=== PATIENT | male | born 1965 | race African-American/Black ===

== ENCOUNTER 2018-05-13 04:49 | Inpatient (IN) ==
[2018-05-13] MEDS ORDERED: Ketorolac 30 MG/ML VIAL IM ONE (04:57)
[2018-05-13] MEDS ORDERED: 0.9 % Sodium Chloride 1,000 ML IVC ONE (04:58)
[2018-05-13] MEDS ORDERED: Ketorolac 15 MG/ML VIAL IVP ONE (04:58)
--- NOTE | 2018-05-13 04:59 | Emergency Department Note ---
Disposition Clinical Impression: Polyarthralgia, Heroin use, Type 1 diabetes mellitus on insulin therapy, Hyperglycemia Cellulitis Qualifiers: Site of cellulitis: extremity Site of cellulitis of extremity: upper extremity Laterality: left Qualified Code(s): L03.114 - Cellulitis of left upper limb Sepsis Qualifiers: Sepsis type: sepsis due to unspecified organism Qualified Code(s): A41.9 - Sepsis, unspecified organism Disposition: Admitted As Inpatient Condition: Fair [facility]Primary Care Provider[facility] - Forms: ED Satisfaction Letter Time of Disposition: 05:38 Extremity Problem HPI - General Chief complaint: ED Extremity Problem,Nontraumatic Stated complaint: arm and leg pain Time Seen by Provider: 05/13/18 04:50 Source: patient, EMS Mode of arrival: ambulatory Limitations: no limitations Nursing Notes Reviewed: Yes Vital Signs Reviewed: Yes - History of Present Illness HPI Narrative: 52-year-old male history of heroin IV drug use, presents complaining of bilateral upper and lower extremity myalgias worsening his right arm forearm and left forearm, as well as his right knee. Patient states he is warmth and tenderness of his knee. He states that today he was able to walk but his pain was so severe. The patient denies headache or chest pain, denies abdominal pain or shortness of breath. Patient Pt Subjective Complaint: extremity pain Injury Location: left, right, upper extremity, lower extremity, elbow Pain Scale: 10 Quality: aching Improves with: nothing Worsens with: nothing Associated symptoms: Reports: fever, myalgias. Denies: chest pain, shortness of breath, abdominal pain, bowel/bladder symptoms, arthralgias, change in appearance, swelling - Related Data Home Medications Medication Instructions Recorded Confirmed Aspirin [Adult Low Dose Aspirin EC] 81 mg PO DAILY 02/01/16 02/01/16 Baclofen [Lioresal] 10 mg PO TID 02/01/16 02/01/16 Buspirone HCl [Buspar] 10 mg PO TID 02/01/16 02/01/16 Colestipol HCl [Colestid] 2 gm PO DAILY 02/01/16 02/01/16 Gabapentin [Neurontin] 800 mg PO TID 02/01/16 02/01/16 Insulin ASPART [NovoLOG] 2 - 10 unit SQ ACHS 02/01/16 02/01/16 Insulin Glargine,Hum.rec.anlog 20 unit SQ BID 02/01/16 02/01/16 [Lantus Solostar] Losartan [Cozaar] 50 mg PO DAILY 02/01/16 02/01/16 Omeprazole [PriLOSEC] 20 mg PO DAILY 02/01/16 02/01/16 Venlafaxine HCl [Effexor Xr] 75 mg PO DAILY 02/01/16 02/01/16 hydrALAZINE [HydrALAZINE] 25 mg PO TID 02/01/16 02/01/16 Previous Rx's Medication Instructions Recorded Ibuprofen [Motrin] 800 mg PO Q8HR PRN #21 tablet 02/02/16 cloNIDine HCl [Clonidine HCl] 0.3 mg PO TID PRN #21 tab 02/02/16 Allergies Allergy/AdvReac Type Severity Reaction Status Date / Time No Known Allergies Allergy Verified 07/30/15 10:00 All systems ED: reviewed and negative except as stated. Review of Systems: As Per HPI Constitutional: Reports: fever, chills Eyes: Denies: eye pain, eye discharge ENT ED: Denies: ear pain Cardiovascular: Denies: chest pain Respiratory: Denies: cough, dyspnea Gastrointestinal: Denies: abdominal pain, nausea, hematemesis Genitourinary: Denies: urgency, dysuria Musculoskeletal: Reports: as per HPI, joint swelling, arthralgia, myalgia. Denies: back pain Integumentary: Reports: as per HPI, rash Neurological: Denies: headache Psychiatric: Denies: anxiety Endocrine: Denies: fatigue Hematological/Lymphatic: Denies: easy bleeding Past Medical History - Past Medical History Attestation: Yes The following information was validated with the patient. Source: patient Medical history: Reports: diabetes, GERD, hyperlipidemia, hypertension, other Surgical history: Reports: no surgical history, orthopedic, other Psychiatric history: Reports: no psych history - Social History Smoking Status: Current every day smoker Smokeless Tobacco Status: No Alcohol use: Reports: occasionally Drug use: Reports: cocaine, IV Drug Use, other Physical Exam - General Limitations: no limitations General appearance: alert, in no apparent distress - Head Head exam: atraumatic - Eye Eye exam: Present: normal appearance, PERRL - ENT ENT exam: normal exam, normal oropharynx - Neck Neck exam: Present: normal inspection, full ROM - Chest Chest inspection: Present: normal inspection - Respiratory Respiratory exam: Present: normal lung sounds bilaterally. Absent: respiratory distress - Cardiovascular Cardiovascular exam: Present: regular rate, normal rhythm - Abdominal Exam Abdominal exam: Present: soft, Non-Tender. Absent: distention, guarding - Expanded Upper Extremity Exam Arm exam: Present: normal inspection, full ROM Elbow exam: Present: tenderness, swelling, erythema. Absent: crepitus, dislocation, effusion, pain w/ pronation/supination - Expanded Lower Extremity Exam 1 - Erythematous, tenderness palpation anteriorly, pain with passive range of motion Course Course Narrative: 52-year-old male with erythema and warmth to the right knee bilateral elbows, his left elbow is more indurated, concern for possible septic joints and also for bacteremia given that he uses IV drugs visit temperature 100.9, meets for Sirs criteria having blood cultures lactate fluids, will reassess. - Reevaluation(s) Reevaluation #1: Patient started empirically on vancomycin and Zosyn, right knee was tapped and sent for synovial fluid analysis, blood cultures were sent urinalysis, and UDS at the request the hospitalist, also GC chlamydia, Dr. Arellano excepting for admission. Time: 06:20 Vital Signs Temperature 100.9 F H 05/13/18 04:52 Pulse Rate 90 05/13/18 04:52 Respiratory Rate 16 05/13/18 04:52 Blood Pressure 152/87 05/13/18 04:52 O2 Sat by Pulse Oximetry 96 05/13/18 04:52 Temperature 100.9 F H 05/13/18 04:52 Pulse Rate 90 05/13/18 04:52 Respiratory Rate 16 05/13/18 04:52 Blood Pressure 152/87 05/13/18 04:52 O2 Sat by Pulse Oximetry 96 05/13/18 04:52 Oxygen Delivery Oxygen Delivery Room Air Procedures - Joint Aspiration/Injection Joint Aspiration/Injection 1 Consent Obtained: verbal consent Time Out Performed: Yes Side of body: right Joint Aspirated: knee Ultrasound Guidance: No Skin Prep: Chlorhexidine Local Anesthetic: lidocaine 1%, with epi Amount of anesthesia used (mL): 5 Fluid Obtained: clear Total Fluid Obtained (mls): 15 Medication Injected, if any: Lidocaine Amount of Medication Injected (mLs): 2 Patient Tolerated Procedure: well, no complications Complications: none Extremity Problem, Nontraumati - Differential Diagnosis Likely: cellulitis, superficial thrombophlebitis, lower extremity edema, septic joint - Medical Records Medical records reviewed: Yes I reviewed the patient's medical records. - Lab Data Lab results reviewed: Yes I reviewed the patient's lab results. Result diagrams: 05/13/18 05:11 05/13/18 05:11 Lab Results 05/13/18 05/13/18 05/13/18 Range/Units 04:54 04:55 05:11 WBC 17.8 H (4.3-11.1) K/mcL RBC 4.88 (4.19-5.50) M/mcL Hgb 13.0 (12.9-16.9) g/dL Hct 38.5 (37.5-50.1) % MCV 78.9 L (83.0-100.0) fL MCH 26.6 L (28.0-33.3) pg MCHC 33.8 (31.6-35.5) g/dL RDW 12.0 (11.5-14.5) % Plt Count 320 (140-400) K/mcL MPV 10.1 (9.4-12.4) fL Immature Gran % 0.5 (0-4) % Seg Neutrophils % 90.3 % Lymphocytes % 4.1 % Monocytes % 4.9 % Eosinophils % 0.0 % Basophils % 0.2 % Neutrophils # 16.1 H (1.6-8.9) K/mcL Lymphocytes # 0.7 (0.6-4.6) K/mcL Monocytes # 0.9 (0.0-1.3) K/mcL Eosinophils # 0.0 (0.0-0.6) K/mcL Basophils # 0.0 (0.0-0.2) K/mcL ESR (0-10) mm/hr Sodium (136-145) mEq/L Potassium (3.5-5.1) mEq/L Chloride (98-107) mEq/L Carbon Dioxide (23-29) mEq/L BUN (6-20) mg/dL Creatinine (0.70-1.30) mg/dL Est GFR ( Amer) (> 60) Est GFR (Non-Af Amer) (> 60) BUN/Creatinine Ratio (6-26) Glucose (70-105) mg/dL POC Glucose 408 H* 304 H (70-99) mg/dL Calculated Osmolality (280-300) Lactic Acid (0.5-2.2) mmol/L Calcium (8.6-10.3) mg/dL C-Reactive Protein (Less than 10) mg/L 05/13/18 05/13/18 05/13/18 Range/Units 05:11 05:11 05:11 WBC (4.3-11.1) K/mcL RBC (4.19-5.50) M/mcL Hgb (12.9-16.9) g/dL Hct (37.5-50.1) % MCV (83.0-100.0) fL MCH (28.0-33.3) pg MCHC (31.6-35.5) g/dL RDW (11.5-14.5) % Plt Count (140-400) K/mcL MPV (9.4-12.4) fL Immature Gran % (0-4) % Seg Neutrophils % % Lymphocytes % % Monocytes % % Eosinophils % % Basophils % % Neutrophils # (1.6-8.9) K/mcL Lymphocytes # (0.6-4.6) K/mcL Monocytes # (0.0-1.3) K/mcL Eosinophils # (0.0-0.6) K/mcL Basophils # (0.0-0.2) K/mcL ESR 107 H (0-10) mm/hr Sodium 127 L (136-145) mEq/L Potassium 4.5 (3.5-5.1) mEq/L Chloride 96 L (98-107) mEq/L Carbon Dioxide 22 L (23-29) mEq/L BUN 19 (6-20) mg/dL Creatinine 2.36 H (0.70-1.30) mg/dL Est GFR ( Amer) 35 L (> 60) Est GFR (Non-Af Amer) 29 L (> 60) BUN/Creatinine Ratio 8 (6-26) Glucose 355 H (70-105) mg/dL POC Glucose (70-99) mg/dL Calculated Osmolality 281 (280-300) Lactic Acid 1.2 (0.5-2.2) mmol/L Calcium 8.2 L (8.6-10.3) mg/dL C-Reactive Protein 53 H (Less than 10) mg/L - Radiology Data Radiology results reviewed: Yes I reviewed the patient's radiology results. Elbow X-Ray 05/13/18 04:57 IMPRESSION: 1. Diffuse soft tissue swelling with a small foreign body adjacent to the base of the thumb. 2. No fracture or malalignment. D/ / Mariusz Austin MD / Mariusz Austin MD Interpreting Provider: Mariusz Austin MD Forearm X-Ray 05/13/18 04:57 IMPRESSION: 1. Diffuse soft tissue swelling with a small foreign body adjacent to the base of the thumb. 2. No fracture or malalignment. D/ / Mariusz Austin MD / Mariusz Austin MD Interpreting Provider: Mariusz Austin MD Knee X-Ray 05/13/18 04:57 IMPRESSION: Soft tissue swelling and joint effusion with no acute osseous abnormality. D/ / Mariusz Austin MD / Mariusz Austin MD Interpreting Provider: Mariusz Austin MD Chest X-Ray 05/13/18 05:04 IMPRESSION: Minimal right basilar atelectasis or, less likely, pneumonia. D/ / Mariusz Austin MD / Mariusz Austin MD Interpreting Provider: Mariusz Austin MD - EKG Data EKG attestation: Yes I reviewed and interpreted this EKG. EKG shows normal: sinus rhythm Rate: normal (87 bpm [place] 152 QRS 105 QTc 396) [place]/QRS: normal
[2018-05-13 05:32] LABS: Basophils % 0.2 %; Hematocrit 38.5 % (37.5-50.1); Immature Granulocytes % 0.5 % (0-4); Lymphocytes # 0.7 K/mcL (0.6-4.6); Lymphocytes % 4.1 %; Mean Corpuscular HGB Conc 33.8 g/dL (31.6-35.5); Mean Corpuscular Hemoglobin 26.6 pg (28.0-33.3); Mean Corpuscular Volume 78.9 fL (83.0-100.0); Mean Platelet Volume 10.1 fL (9.4-12.4); Monocytes # 0.9 K/mcL (0.0-1.3); Monocytes % 4.9 %; Neutrophils # 16.1 K/mcL (1.6-8.9); Platelet Count 320 K/mcL (140-400); Red Blood Count 4.88 M/mcL (4.19-5.50); Segmented Neutrophils % 90.3 %
[2018-05-13] MEDS ORDERED: Vancomycin 1,000 MG in D5% in Water 250 ML IVPB ONE (05:35)
[2018-05-13] MEDS ORDERED: Piperacillin/Tazobactam 3.375 GM in 0.9 % Sodium Chloride Mini Bag 100 ML IVPB ONE (05:35)
--- NOTE | 2018-05-13 05:39 | Emergency Department Note ---
START Narrative - START START: I examined this patient and my medical decision-making was reviewed with the Resident Physician. I agree with the documented findings, disposition and treatment plan as described except to the extent set forth below. 52 yo M presents to the ER for arthralgias and myalgias. Specifically, patient having increasing pain to the left forearm and left elbow as well as the right knee. He is an IV drug user. Last use was yesterday in the left forearm. I suspect he is getting disseminated infection. His chest x-ray is also concerning for possible right lower lobe pneumonia. The area that he has a bad infection in the left forearm. He has got multiple areas of joints that are very hot and tender to touch. We will start him on broad spectrum antibiotics of vancomycin and Zosyn. Patient will need to be admitted. Blood cultures. His white count is elevated. I feel the patient also probably needs a heart echo to evaluate for any possible vegetation for possible endocarditis. admit
[2018-05-13 05:49] LABS: Calcium 8.2 mg/dL (8.6-10.3); Potassium 4.5 mEq/L (3.5-5.1)
[2018-05-13 06:02] LABS: Source,Synovial Fluid R knee
[2018-05-13] MEDS ORDERED: Insulin Regular, Human 100 UNIT/ML SQ ONE (06:05)
[2018-05-13] MEDS ORDERED: *HR* OxyCODONE/APAP 7.5/325 TABLET PO STA (06:06)
[2018-05-13 06:13] LABS: Bilirubin,Urine Negative (Negative); Blood,Urine Small (Negative); Clarity,Urine Clear (Clear); Color,Urine Yellow (Yellow); Glucose,Urine (UA) 500 mg/dL (Normal); Ketones,Urine Negative (Negative); Leukocyte Esterase,Urine Negative (Negative); Nitrite,Urine Negative (Negative); PH,Urine 6.5 pH Units (5.0-8.0); Protein,Urine >=1000 mg/dL (Neg-Trace); Urobilinogen,Urine Normal (Normal)
[2018-05-13 06:15] LABS: Bacteria,Urine None Seen per hpf (None-Few); Hyaline Casts,Urine None Seen per lpf (None-Few); Squamous Epithelial Cell,Urine Many per lpf (None-Few)
[2018-05-13 06:27] LABS: Color,Synovial Fluid Colorless (Straw)
[2018-05-13 06:28] LABS: Appearance,Synovial Fluid Hazy (Clear-Hazy)
[2018-05-13 06:40] LABS: Glucose,Synovial Fluid 309 mg/dL (No Ref Range); LDH,Synovial Fluid 48 Units/L (No Ref Range)
[2018-05-13 06:52] LABS: Amphetamine Screen,Urine Negative ng/mL (Cutoff=1000); Barbiturate Screen,Urine Negative ng/mL (Cutoff=200); Benzodiazepines Screen,Urine Negative ng/mL (Cutoff=200); Cannabinoid Screen,Urine Positive ng/mL (Cutoff = 50); Cocaine Screen,Urine Positive ng/mL (Cutoff= 300); Opiate Screen,Urine Positive ng/mL (Cutoff=300); Phencyclidine Screen,Urine Negative ng/mL (Cutoff=25)
[2018-05-13 07:14] LABS: VBG HCO3 22 mEq/L (21-27); VBG PCO2 38 mmHg (41-51); VBG PH 7.37 pH Units (7.32-7.42); VBG PO2 81 mmHg (25-50)
[2018-05-13] MEDS ORDERED: Dextrose Gel 15 GM/37.5 ML TUBE PO PRN ×2 (07:43)
[2018-05-13] MEDS ORDERED: D5% in Water 1,000 ML IVC PRN (07:43)
[2018-05-13] MEDS ORDERED: *HR* Dextrose 50 % in Water (Syg) 50 ML SYRINGE IVP PRN (07:43)
[2018-05-13] MEDS ORDERED: cloNIDine HCl 0.1 MG TABLET PO STA (07:44)
[2018-05-13] MEDS ORDERED: Ipratropium/Albuterol Neb 3 ML IH PRN (07:46)
[2018-05-13] MEDS ORDERED: Naloxone 0.4 MG/ML INJ IVP PRN (07:49)
[2018-05-13] MEDS: 0.9 % Sodium Chloride 1,000 ML IVC SCH ×2 (08:31→23:44)
[2018-05-13] MEDS: Insulin LISPRO 300 UNITS/3 ML VIAL SQ SCH ×5 (08:32→23:55)
--- NOTE | 2018-05-13 08:35 | Internal Med History&Physical ---
Date of Encounter: 05/13/18 Time of Encounter: 07:47 Internal Medicine - H&P: HPI Chief complaint: "Pain in both arms and right knee" Admitted From: Emergency Dept Plans for Post Hospital Care: Home History of present illness: Mr. Sabillon is a 52 year old male who presented to ED this morning with bilateral arm pain and right knee pain. He states that the pains started about 1 day ago. He is IVDU with cocaine and heroin; most recent use was injecting in arms with heroin few days ago. He states that both arms are painful at antecubital fossa at the injection sites. He states that right knee is also painful and swollen. He states that he helped move a heavy friend that had a seizure, and in the process hurt his back. He currently complains of only back pain. He denies fever, chills, chest pain, SOB, cough, nausea, vomiting, abdominal pain, changes in bladder, and changes in bowels. He wants to eat something. In the ED, patient had elevated blood glucose to 408. He has history of Type I DM. He was given 10 units regular insulin. Anion gap and pH were normal. He was also found to have elevated WBC to 17.8. Creatinine was 2.36. UDS was positive for cocaine, opiates, and marijuana. Right knee was tapped and synovial fluid sent for culture and analysis. He was given IVF, IV vancomycin, and IV zosyn. He met SIRS criteria, but not septic. Patient is resting comfortably in room during my examination. He is conversing appropriately and in no distress. Past Med Surg Social Fam HX - Past Medical History Attestation: Yes The following information was validated with the patient. Source: patient Medical history: diabetes, GERD, hyperlipidemia, hypertension, renal disease, other Psychiatric history: no psych history - Past Surgical History Surgical History: no surgical history, orthopedic, other - Social History Smoking Status: Current every day smoker Smokeless Tobacco Status: No Alcohol use: occasionally Drug use: cocaine, IV Drug Use, other - Family History Mother Living Status: Hx Family Cardiac Disorders: No Hx Family Respiratory Disorders: Yes (lung cancer) Hx Family Cancer: Yes Hx Family GI Disorders: No Hx Family Endocrine Disorder: Yes Hx Family Neuromuscular Disorders: No Hx Family Neurologic Disorders: No Hx Family HEENT Disorders: No Hx Family Autoimmune Disorders: No Father Living Status: Hx Family Cardiac Disorders: No Hx Family Respiratory Disorders: No Hx Family Cancer: No Hx Family GI Disorders: No Hx Family Endocrine Disorder: Yes (DM) Hx Family Neuromuscular Disorders: No Hx Family Neurologic Disorders: No Hx Family HEENT Disorders: No Hx Family Autoimmune Disorders: No - Additional Family History Additional family history: Family history reviewed with patient. Internal Medicine - H&P: Meds Aspirin [Adult Low Dose Aspirin EC] 81 mg PO DAILY 02/01/16 [History] Baclofen [Lioresal] 10 mg PO TID 02/01/16 [History] Buspirone HCl [Buspar] 10 mg PO TID 02/01/16 [History] Colestipol HCl [Colestid] 2 gm PO DAILY 02/01/16 [History] Gabapentin [Neurontin] 800 mg PO TID 02/01/16 [History] Insulin ASPART [NovoLOG] 2 - 10 unit SQ ACHS 02/01/16 [History] Insulin Glargine,Hum.rec.anlog [Lantus Solostar] 20 unit SQ BID 02/01/16 [ History] Losartan [Cozaar] 50 mg PO DAILY 02/01/16 [History] Omeprazole [PriLOSEC] 20 mg PO DAILY 02/01/16 [History] Venlafaxine HCl [Effexor Xr] 75 mg PO DAILY 02/01/16 [History] hydrALAZINE [HydrALAZINE] 25 mg PO TID 02/01/16 [History] Ibuprofen [Motrin] 800 mg PO Q8HR PRN #21 tablet 02/02/16 [Rx] cloNIDine HCl [Clonidine HCl] 0.3 mg PO TID PRN #21 tab 02/02/16 [Rx] 3 Allergy/AdvReac Type Severity Reaction Status Date / Time No Known Allergies Allergy Verified 05/13/18 08:25 All Systems PM: A 10-system review of systems was performed and is negative for pertinent findings except as documented above in the HPI. - Constitutional Vitals: Temp Pulse Resp BP Pulse Ox 100.6 F H 91 18 160/94 97 05/13/18 07:29 05/13/18 07:29 05/13/18 07:29 05/13/18 07:29 05/13/18 07:29 General appearance: Present: cooperative, A&O X 3, pleasant, no acute distress, answers questions appropriately - Head Head exam: Present: atraumatic, normal inspection, normocephalic - Eye Eye exam: Present: EOMI, PERRL. Absent: conjunctival injection, nystagmus, scleral icterus - ENT ENT exam: Present: mucous membranes moist, normal external ear exam, normal oropharynx - Neck Neck exam general surgery: Present: supple, trachea midline. Absent: lymphadenopathy, tenderness, thyromegaly - Respiratory Respiratory exam: Present: CTAB. Absent: accessory muscle use, rales, rhonchi, wheezes Additional comments: Normal WOB - Cardiovascular Cardiovascular exam: Present: RRR, +S1, +S2. Absent: diastolic murmur, gallop, rubs, systolic murmur Additional comments: Trace right knee edema, otherwise no BLE edema - GI/Abdominal GI/Abdominal exam: Present: normal bowel sounds, soft. Absent: distended, hepatomegaly, mass, splenomegaly, tenderness - Extremities Exam Additional comments: Trace erythema of bilateral antecubital fossa without edema, TTP, open wound, abscess, or drainage; mild erythema and edema of right knee with mild TTP - Neurological Exam Neurological exam: Present: alert, CN II-XII intact, oriented X3, no focal deficits, strengths equal and symetr throughout. Absent: motor sensory deficit , facial droop, speech deficit - Psychiatric Psychiatric exam: Present: normal affect, normal mood. Absent: agitated, anxious, depressed - Skin Skin exam: Present: dry, intact, warm. Absent: cyanosis, rash Internal Med - H&P Results - Labs CBC & Chem 7: 05/13/18 05:11 05/13/18 05:11 - ABG Interpretation ABG results: 05/13/18 07:11 VBG pH 7.37 VBG pCO2 38 L VBG pO2 81 H VBG HCO3 22 - Assessment and plan (1) SIRS (systemic inflammatory response syndrome) Current Visit: Yes Status: Acute Assessment and plan: Multiple possible sources of infection as per below. Continue IVF, IV vancomycin, and IV zosyn. Recheck labwork in AM. (2) Septic joint of right knee joint Current Visit: Yes Status: Suspected Assessment and plan: S/P drainage in ED. Synovial fluid culture and labs pending. Pain improved. Continue IV vancomycin and IV zosyn. Pain control with tylenol and norco PRN. Avoid NSAIDs due to CKD. Qualifiers: Septic arthritis organism: due to unspecified organism Qualified Code(s): M00.9 - Pyogenic arthritis, unspecified (3) Bacteremia Current Visit: Yes Status: Suspected Assessment and plan: Follow up on blood cultures. Continue IV vancomycin and IV zosyn. (4) Cellulitis Current Visit: Yes Status: Acute Assessment and plan: Mild erythema at bilateral antecubital fossa at IVDU injection sites. No open wounds, abscess, or drainage. Continue IV vancomycin and IV zosyn. Qualifiers: Site of cellulitis: extremity Site of cellulitis of extremity: upper extremity Laterality: unspecified laterality Qualified Code(s): L03.119 - Cellulitis of unspecified part of limb (5) Right lower lobe pneumonia Current Visit: Yes Status: Suspected Assessment and plan: Continue IV vancomycin and IV zosyn as per above. No respiratory distress at this time. Start incentive spirometer and duonebs PRN SOB. Qualifiers: Pneumonia type: due to unspecified organism Qualified Code(s): J18.1 - Lobar pneumonia, unspecified organism (6) Hyperglycemia Current Visit: Yes Status: Acute Assessment and plan: Secondary to Type I DM. Positive beta-hydroxybutyrate. Normal pH and anion gap. Restart home long-acting insulin. Start accuchecks and high dose SSI Q4H. (7) Polyarthralgia Current Visit: Yes Status: Acute Assessment and plan: Pain control as per above. Continue IV vancomycin and IV zosyn to cover septic joints. Follow up on right knee synovial fluid culture and labs. (8) Type 1 diabetes mellitus on insulin therapy Current Visit: Yes Status: Chronic Assessment and plan: Plan as per above. (9) Cocaine abuse Current Visit: Yes Status: Chronic Assessment and plan: IVDU with multiple drugs, including heroin most recently few days ago. Counselled extensively on cessation of IV drug abuse. No signs or symptoms of withdrawal. Be cautious with opioids and other controlled substances. (10) Hypertension Current Visit: Yes Status: Chronic Assessment and plan: Mildly hypertensive, likely due to missing AM anti-hypertensive doses. Continue home medications. Qualifiers: Hypertension type: essential hypertension Qualified Code(s): I10 - Essential (primary) hypertension (11) CKD (chronic kidney disease) Current Visit: Yes Status: Chronic Assessment and plan: Follows up with [place] [facility]. May have slight NARINDER on CKD based on chart review. Continue IVF at 100 ml/hr. Recheck BMP in AM. Qualifiers: Chronic kidney disease stage: unspecified stage Qualified Code(s): N18.9 - Chronic kidney disease, unspecified (12) DVT prophylaxis Current Visit: Yes Status: Acute Assessment and plan: Start lovenox 40 mg SQ QD and SCDs. - Time Spent With Patient Total time spent is greater than 50% in coordination of care (as documented) at patient's floor/unit and/or counseling patient: less than 15 minutes
[2018-05-13] MEDS ORDERED: Sennosides/Docusate Sodium TABLET PO PRN (08:41)
[2018-05-13] MEDS ORDERED: Fluticasone Propionate Nasal 50 MCG/SPRAY BOTTLE NS PRN (08:41)
[2018-05-13] MEDS ORDERED: Vancomycin 500 MG in 0.9 % Sodium Chloride Mini Bag 100 ML IVPB ONE (09:00)
[2018-05-13] MEDS ORDERED: Insulin DETEMIR 100 UNIT/ML X5UNITS SQ SCH (09:00)
[2018-05-13] MEDS: hydrALAZINE 25 MG TABLET PO SCH ×4 (13:27→20:02)
[2018-05-13] MEDS: Gabapentin 300 MG CAPSULE PO SCH ×3 (13:27→20:02)
[2018-05-13] MEDS: Cholecalciferol (D-3) 1,000 UNIT TABLET PO SCH (13:29)
[2018-05-13] MEDS: Piperacillin/Tazobactam 3.375 GM in 0.9 % Sodium Chloride Mini Bag 100 ML IVPB SCH ×2 (13:29→21:30)
[2018-05-13] MEDS: Aspirin Enteric Coated 81 MG Tablet PO SCH (13:29)
[2018-05-13 16:22] LABS: Estimated Average Glucose 192 mg/dl; Hemoglobin A1C 8.3 %
[2018-05-13] MEDS: Acetaminophen 325 MG TABLET PO PRN ×2 (17:08→23:58)
[2018-05-13] MEDS: Insulin DETEMIR 100 UNIT/ML X5UNITS SQ SCH (17:09)
[2018-05-13 18:33] LABS: Enterococcus by PCR Not Detected (Not Detect); Staphylococcus aureus by PCR Not Detected (Not Detect); blaKPC Carbapenem-Resist Gene Not Detected (Not Detect); mecA Methicillin-Resist Gene Not Detected (Not Detect); vanA/B Vancomycin-Resist Genes Not Detected (Not Detect)
[2018-05-13 18:34] LABS: Acinetobacter baumannii by PCR Not Detected (Not Detect); Candida albicans by PCR Not Detected (Not Detect); Candida glabrata by PCR Not Detected (Not Detect); Candida krusei by PCR Not Detected (Not Detect); Candida parapsilosis by PCR Not Detected (Not Detect); Candida tropicalis by PCR Not Detected (Not Detect); Escherichia coli by PCR Not Detected (Not Detect); Klebsiella oxytoca by PCR Not Detected (Not Detect); Klebsiella pneumoniae by PCR Not Detected (Not Detect); Pseudomonas aeruginosa by PCR Not Detected (Not Detect); Serratia marcescens by PCR Not Detected (Not Detect); Streptococcus agalactiae(B)PCR Not Detected (Not Detect); Streptococcus by PCR ***DETECTED*** (Not Detect); Streptococcus pneumoniae PCR Not Detected (Not Detect); Streptococcus pyogenes (A) PCR ***DETECTED*** (Not Detect)
[2018-05-13] MEDS: *HR* HYDROcodone/Acet 5/325 mg TABLET PO PRN (20:01)
[2018-05-14] MEDS: Insulin LISPRO 300 UNITS/3 ML VIAL SQ SCH ×5 (04:24→20:42)
[2018-05-14 04:59] LABS: Potassium 4.3 mEq/L (3.5-5.1)
[2018-05-14] MEDS: Piperacillin/Tazobactam 3.375 GM in 0.9 % Sodium Chloride Mini Bag 100 ML IVPB SCH ×2 (05:31→14:27)
[2018-05-14] MEDS: *HR* Enoxaparin 40 MG/0.4 ML SYRINGE SQ SCH (05:35)
[2018-05-14 06:36] LABS: Basophils # 0.1 K/mcL (0.0-0.2); Basophils % 0.4 %; Hemoglobin 12.6 g/dL (12.9-16.9); Immature Granulocytes % 0.7 % (0-4); Lymphocytes # 1.3 K/mcL (0.6-4.6); Lymphocytes % 7.7 %; Mean Corpuscular HGB Conc 33.2 g/dL (31.6-35.5); Mean Corpuscular Hemoglobin 26.4 pg (28.0-33.3); Mean Corpuscular Volume 79.7 fL (83.0-100.0); Monocytes # 0.9 K/mcL (0.0-1.3); Monocytes % 5.6 %; Neutrophils # 14.1 K/mcL (1.6-8.9); Platelet Count 316 K/mcL (140-400); Red Blood Count 4.77 M/mcL (4.19-5.50); Red Cell Distribution Width 12.1 % (11.5-14.5); Segmented Neutrophils % 85.6 %
[2018-05-14] MEDS ORDERED: Aminoglycoside Consult 1 EACH MC ONE (08:03)
[2018-05-14] MEDS: Cholecalciferol (D-3) 1,000 UNIT TABLET PO SCH (08:11)
[2018-05-14] MEDS: Aspirin Enteric Coated 81 MG Tablet PO SCH (08:11)
[2018-05-14] MEDS: hydrALAZINE 25 MG TABLET PO SCH ×4 (08:11→20:41)
[2018-05-14] MEDS: Gabapentin 300 MG CAPSULE PO SCH ×3 (08:11→20:41)
[2018-05-14] MEDS: Insulin DETEMIR 100 UNIT/ML X5UNITS SQ SCH ×2 (08:11→20:42)
[2018-05-14] MEDS: Acetaminophen 325 MG TABLET PO PRN (08:11)
[2018-05-14] MEDS: *HR* HYDROcodone/Acet 5/325 mg TABLET PO PRN ×3 (08:12→20:41)
[2018-05-14] MEDS: 0.9 % Sodium Chloride 1,000 ML IVC SCH ×2 (09:10→14:27)
[2018-05-14] MEDS: Clindamycin 900 MG/50 ML 900 MG/50 ML IV.SOLN IVPB SCH (16:06)
--- NOTE | 2018-05-14 16:11 | Infectious Disease Consult ---
Date of Encounter: 05/14/18 Time of Encounter: 16:09 Assessment and Plan (1) Sepsis Status: Acute Assessment and plan: Had 3 SIRS criteria on admission Likely secondary to group A strep bacteremia Qualifiers: Sepsis type: Streptococcus group A Qualified Code(s): A40.0 - Sepsis due to streptococcus, group A (2) Bacteremia due to Streptococcus Status: Acute Assessment and plan: 2 out of 2 blood cultures positive on May 13 Likely source IV drug use No endocarditis stigmata Repeat cultures in 48 hours DC vancomycin and Zosyn Start penicillin and clindamycin Monitor labs and for drug toxicity Duration of treatment at least 14 days (3) IV drug user Status: Acute Assessment and plan: Patient has positive IV cocaine, marijuana and opiates Last time he is IV drugs was a day prior to admission Patient known to have hepatitis C we will check hepatitis B and HIV status (4) Cellulitis of left upper extremity Status: Acute Assessment and plan: Significantly improved. There is no fluctuance or pain. Barely visible. Likely secondary to group A strep (5) Abdominal pain Status: Acute Assessment and plan: Patient might have ascites He also has hepatitis C since 1989 Concern for liver cirrhosis or liver malignancy We will order CT abdomen and pelvis with oral contrast We will also check LFTs, lipase and amylase, and PT/INR Qualifiers: Abdominal location: generalized Qualified Code(s): R10.84 - Generalized abdominal pain (6) Poorly controlled type 2 diabetes mellitus Status: Acute (7) Diabetic nephropathy associated with type 2 diabetes mellitus Status: Acute (8) Diabetic neuropathy Status: Acute Qualifiers: Diabetes mellitus type: type 2 Diabetes mellitus complication detail: diabetic polyneuropathy Qualified Code(s): E11.42 - Type 2 diabetes mellitus with diabetic polyneuropathy (9) Cough Status: Acute Assessment and plan: Chest x-ray saying possible atelectasis versus pneumonia We will check urine pneumococcal antigen urine legionella antigen and respiratory infectious panel (10) Dyslipidemia Status: Acute (11) Hypertension Status: Chronic Qualifiers: Hypertension type: essential hypertension Qualified Code(s): I10 - Essential (primary) hypertension Infectious Disease HPI - Data of Consult Patient: new to practice Consult date: 05/14/18 Requesting Physician: Manolo Meeks [facility] - Consult Narrative Reason for consult: sepsis and gpc bacteremia History of present illness: Mr. Sabillon is a 52 year old male Patient is a 52-year-old gentleman admitted to [place] for diffuse pain on May 13 , we are consulted on May 14 for sepsis and bacteremia with gram-positive cocci Patient is a 52-year-old gentleman with extensive past medical history including diabetes mellitus type 2 for about 20 years complicated with diabetic retinopathy, diabetic nephropathy and peripheral vascular disease and peripheral neuropathy also has hepatitis C diagnosed in 1989 that has not been treated yet and also has a social history positive for tobacco and drug abuse came into the hospital yesterday with diffuse pain that is nonspecific. Patient apparently tells me that he just had bilateral arm pain and abdominal pain chest pain and was just feeling weak and tired. He was also short of breath and was having pleuritic chest pain. Patient states that 1 day prior to all this happening he was using IV drugs including cocaine. Patient was shooting in bilateral upper extremities but in the left upper extremity he had some pain swelling and redness. Since arrival to the emergency department, patient has been febrile with a MAXIMUM TEMPERATURE of 101.4, patient has been tachycardic. Presenting labs revealed WBC of 17.8, ESR of 107, creatinine of 2.36, glucose of 355 and lactic acid of 1.2. A urinalysis revealed protein over thousand and glucose 500 with no signs of infection. Patient had right knee arthrocentesis done and it showed WBCs of 1000 with 88% neutrophils and glucose of 309 LDH of 48 and protein less than 3. So far Gram stain and cultures are negative. Drug screen was positive for cocaine and marijuana and opiates. Patient also have blood cultures in 2 out of 2 sets are positive for group A streptococcus on the PCR by the cultures are still pending. Knee x-ray chest x-ray and elbow x-ray all noted. They showed no acute process. Patient was started on empiric vancomycin and Zosyn and we were consulted to evaluate the patient and make further recommendations. CC: Manolo Meeks Past Med Surg Social Fam HX - Past Medical History Medical history: diabetes, GERD, hyperlipidemia, hypertension, renal disease, other Psychiatric history: no psych history - Past Surgical History Surgical History: no surgical history, orthopedic, other - Social History Smoking Status: Current every day smoker Smokeless Tobacco Status: No Alcohol use: occasionally Drug use: cocaine, IV Drug Use, other - Family History Mother Living Status: Hx Family Cardiac Disorders: No Hx Family Respiratory Disorders: Yes (lung cancer) Hx Family Cancer: Yes Hx Family GI Disorders: No Hx Family Endocrine Disorder: Yes Hx Family Neuromuscular Disorders: No Hx Family Neurologic Disorders: No Hx Family HEENT Disorders: No Hx Family Autoimmune Disorders: No Father Living Status: Hx Family Cardiac Disorders: No Hx Family Respiratory Disorders: No Hx Family Cancer: No Hx Family GI Disorders: No Hx Family Endocrine Disorder: Yes (DM) Hx Family Neuromuscular Disorders: No Hx Family Neurologic Disorders: No Hx Family HEENT Disorders: No Hx Family Autoimmune Disorders: No Infectious Disease-CN:Meds Insulin ASPART [NovoLOG] 2 - 10 unit SQ ACHS 02/01/16 [History] Insulin Glargine,Hum.rec.anlog [Lantus Solostar] 38 unit SQ BID 02/01/16 [ History] Omeprazole [PriLOSEC] 20 mg PO DAILY 02/01/16 [History] hydrALAZINE [HydrALAZINE] 25 mg PO QID 02/01/16 [History] Ibuprofen [Motrin] 800 mg PO Q8HR PRN #21 tablet 02/02/16 [Rx] Aspirin [Lo-Dose Aspirin EC] 81 mg PO DAILY 05/13/18 [History] Cholecalciferol (D-3) [Vitamin D] 2,000 unit PO DAILY 05/13/18 [History] Fluticasone Propionate Nasal [Flonase] 2 spr NS DAILY PRN 05/13/18 [History] Gabapentin [Neurontin] 900 mg PO TID 05/13/18 [History] Losartan Potassium [Cozaar] 100 mg PO DAILY 05/13/18 [History] Polyethylene Glycol 3350 [MiraLAX] 17 gm PO HS 05/13/18 [History] Sennosides/Docusate Sodium [Senna-Docusate Sodium Tablet] 1 tab PO HS PRN [History] 3 Allergy/AdvReac Type Severity Reaction Status Date / Time No Known Allergies Allergy Verified 05/13/18 08:25 Review of systems: 10 point review of systems done, negative other for what is mentioned in history of present illness Exam - Constitutional Vitals: Temp Pulse Resp BP Pulse Ox 99.8 F H 91 18 169/101 94 05/14/18 15:47 05/14/18 15:47 05/14/18 15:47 05/14/18 15:47 05/14/18 15:47 General appearance: febrile, no acute distress - Head Head exam: Present: atraumatic, normocephalic - Eye Eye exam: Present: EOMI, PERRL, sclera anicteric Additional comments: No conjunctival hemorrhage noted - ENT Additional comments: Mucous membranes dry. Poor dentition. - Neck Neck exam: Present: full ROM. Absent: meningismus - Respiratory Respiratory exam: Present: CTAB. Absent: rhonchi, wheezes - Cardiovascular Cardiovascular exam: Present: RRR, +S1, +S2 Additional comments: No murmur appreciated - GI/Abdominal GI/Abdominal exam: Present: distended, soft, tenderness Additional comments: Possible shifting dullness and ascites - Extremities Exam Extremities exam: Absent: full ROM Additional comments: Some slight erythema and edema of the left upper extremity. I did not appreciate any joint effusions or signs of septic arthritis - Back Exam Back exam: Absent: vertebral tenderness Additional comments: No CVA tenderness - Neurological Exam Neurological exam: Present: alert, oriented X3. Absent: speech deficit - Psychiatric Psychiatric exam: Present: normal affect, normal mood - Skin Skin exam: Present: normal color Additional comments: No endocarditis stigmata Infectious Disease CN: Results - Labs CBC & Chem 7: 05/14/18 06:08 05/14/18 04:22 Consult Discharge Plan - Plan [facility]errals: [facility] [Primary Care Provider] -
[2018-05-14] MEDS: Penicillin G Potassium 4,000,000 UNIT in 0.9 % Sodium Chloride 100 ML IVPB SCH ×2 (16:13→20:42)
--- NOTE | 2018-05-14 17:14 | Internal Med Progress Note ---
Date of Encounter: 05/14/18 Time of Encounter: 17:12 - Assessment and plan (1) Bacteremia due to Streptococcus Current Visit: Yes Status: Acute Assessment and plan: Bacteremia due to Streptococcus 2/2 blood cultures positive on May 13 Likely source IVDU No obvious endocarditis stigmata Start penicillin G and clindamycin Monitor labs daily, assess renal function has these medications are nephrotoxic Infectious disease on board-appreciate recommendations, recommendations to Repeat cultures in 48 hours, duration of treatment 14 days Patient is febrile, tachycardic, has an acute on chronic kidney injury and leukocytosis (2) Sepsis Current Visit: Yes Status: Acute Assessment and plan: Sepsis without septic shock, positive for 3 SIRS criteria. Fever with MAXIMUM TEMPERATURE 101.4 this morning, tachycardia, acute on chronic renal disease, leukocytosis, bacteremia with group A strep See plan above Qualifiers: Sepsis type: Streptococcus group A Qualified Code(s): A40.0 - Sepsis due to streptococcus, group A (3) Cellulitis Current Visit: Yes Status: Acute Assessment and plan: Mild erythema at bilateral antecubital fossa, erythema more pronounced on left forearm and antecubital fossa. These are IVDU injection sites. No open wounds , abscess, or drainage. Left forearm is indurated, swollen and tender. Blood cultures positive, patient bacteremic group A strep. Stop IV vancomycin and IV zosyn. Start clindamycin and penicillin G, monitor closely. CT imaging of left forearm now Qualifiers: Site of cellulitis: extremity Site of cellulitis of extremity: upper extremity Laterality: left Qualified Code(s): L03.114 - Cellulitis of left upper limb (4) Septic joint of right knee joint Current Visit: Yes Status: Suspected Assessment and plan: Imaging reveals soft tissue swelling and joint effusion with no acute osseous abnormality S/P drainage in ED. Synovial fluid culture and labs pending. Pain improved with drainage. Pain control with tylenol and norco PRN. Avoid NSAIDs due to CKD. Qualifiers: Septic arthritis organism: due to unspecified organism Qualified Code(s): M00.9 - Pyogenic arthritis, unspecified (5) Type 1 diabetes mellitus on insulin therapy Current Visit: Yes Status: Chronic Assessment and plan: Plan as per above. (6) Hypertension Current Visit: Yes Status: Chronic Assessment and plan: Mildly hypertensive, likely due to missing AM anti-hypertensive doses. Continue home medications, add adjunct medications as necessary, hydralazine 10mg Q6 PRN Qualifiers: Hypertension type: essential hypertension Qualified Code(s): I10 - Essential (primary) hypertension (7) Cocaine abuse Current Visit: Yes Status: Chronic Assessment and plan: H/o cocaine abuse Counselled extensively on cessation of IV drug abuse No signs or symptoms of withdrawal Be cautious with opioids and other controlled substances. (8) Polyarthralgia Current Visit: Yes Status: Acute Assessment and plan: Pain control as per above. Continue to follow right knee synovial fluid culture and labs. (9) SIRS (systemic inflammatory response syndrome) Current Visit: Yes Status: Acute Assessment and plan: Multiple possible sources of infection as per below. Continue IVF, IV vancomycin, and IV zosyn. Recheck labwork in AM. (10) CKD (chronic kidney disease) Current Visit: Yes Status: Chronic Assessment and plan: Follows with Dr. Larose nephrology, reports that he does not regularly follow with nephrology. Unclear baseline renal function, May have slight NRAINDER on CKD based on chart review. Continue IVF at 100 ml/hr. Recheck BMP in AM. Consult to nephrology Qualifiers: Chronic kidney disease stage: unspecified stage Qualified Code(s): N18.9 - Chronic kidney disease, unspecified (11) Right lower lobe pneumonia Current Visit: Yes Status: Suspected Assessment and plan: Unclear as to whether or not pneumonia. CXR indicates possible atelectasis versus pneumonia. Patient does have cough, fever and sepsis. We will check urine pneumococcal antigen, Legionella and respiratory infection panel. No respiratory distress at this time. Continue incentive spirometer and duonebs PRN SOB. Qualifiers: Pneumonia type: due to unspecified organism Qualified Code(s): J18.1 - Lobar pneumonia, unspecified organism (12) Heroin use Current Visit: Yes Status: Chronic Assessment and plan: Patient is an IV drug user, positive for cocaine and marijuana as well Last IVDU was approximately 48 hours ago Known history of hepatitis C greater than 20 years ID following, check hepatitis B and HIV status (13) DVT prophylaxis Current Visit: Yes Status: Acute Assessment and plan: Start lovenox 40 mg SQ and SCDs. - Time Spent With Patient Total time spent is greater than 50% in coordination of care (as documented) at patient's floor/unit and/or counseling patient: Greater than 35 minutes - Subjective Interval history: Patient seen and examined at bedside today. No acute changes overnight. Continue to report left forearm pain as well as some abdominal discomfort. - Constitutional Vitals: Temp Pulse Resp BP Pulse Ox 99.8 F H 91 18 169/101 94 05/14/18 15:47 05/14/18 15:47 05/14/18 15:47 05/14/18 15:47 05/14/18 15:47 General appearance: Present: cooperative, A&O X 3, pleasant, no acute distress, answers questions appropriately - Head Head exam: Present: atraumatic, normocephalic - Eye Eye exam: Present: PERRL, conjuntiva pink, sclera anicteric Pupils: Present: PERRL - Neck Neck exam general surgery: Present: supple, trachea midline. Absent: lymphadenopathy - Respiratory Respiratory exam: Present: CTAB. Absent: accessory muscle use, rales, rhonchi, wheezes - Cardiovascular Cardiovascular exam: Present: RRR, +S1, +S2. Absent: diastolic murmur, gallop, rubs, systolic murmur - GI/Abdominal GI/Abdominal exam: Present: distended (Obvious ascites), firm, normal bowel sounds, tenderness (Mild tenderness to palpation, diffuse), no peritoneal signs - Extremities Exam Extremities exam: Present: warm, radial pulses palpable and symmetrical. Absent : calf tenderness, cyanotic, pedal edema - Expanded Upper Extremities Exam Forearm wrist exam: Present: erythema (Left forearm area is indurated, swollen and tender. Erythema noted, no drainage.), swelling, tenderness. Absent: normal inspection - Neurological Exam Neurological exam: Present: CN II-XII intact, oriented X3, no focal deficits. Absent: pronater drift, facial droop, speech deficit - Skin Skin exam: Present: dry, intact Internal Medicine: Result - Labs CBC & Chem 7: 05/14/18 06:08 05/14/18 04:22 Labs: Short CBC 05/14/18 Range/Units 06:08 WBC 16.5 H (4.3-11.1) K/mcL Hgb 12.6 L (12.9-16.9) g/dL Hct 38.0 (37.5-50.1) % Plt Count 316 (140-400) K/mcL Neutrophils # 14.1 H (1.6-8.9) K/mcL BMP 05/14/18 04:22 Sodium 131 L Potassium 4.3 Chloride 103 Carbon Dioxide 20 L BUN 24 H Creatinine 2.45 H Glucose 117 H Calcium 8.0 L Cardiac Enzymes 05/14/18 Range/Units 13:25 Troponin I 0.03 (< 0.04) ng/mL Liver Function 05/14/18 Range/Units 13:25 Total Bilirubin Cancelled Direct Bilirubin Cancelled AST Cancelled ALT Cancelled Alkaline Phosphatase Cancelled Albumin Cancelled Consult Discharge Plan - Plan [facility]errals: [facility] [Primary Care Provider] -
[2018-05-14 18:27] LABS: Albumin 2.2 g/dL (3.5-5.7); Albumin/Globulin Ratio 0.6 (1.1-2.2); Bilirubin,Direct 0.3 mg/dL (0.0-0.2); Bilirubin,Indirect 0.1 mg/dL (0.0-1.2); Bilirubin,Total 0.4 mg/dL (0.3-1.0); Globulin 3.6 g/dL (2.4-3.5); Total Protein 5.8 g/dL (6.4-8.9)
[2018-05-15] MEDS: Clindamycin 900 MG/50 ML 900 MG/50 ML IV.SOLN IVPB SCH ×4 (01:41→23:32)
[2018-05-15] MEDS: Penicillin G Potassium 4,000,000 UNIT in 0.9 % Sodium Chloride 100 ML IVPB SCH ×7 (01:42→23:33)
[2018-05-15] MEDS: Insulin LISPRO 300 UNITS/3 ML VIAL SQ SCH ×7 (01:44→23:33)
[2018-05-15 01:53] LABS: Basophils % 0.3 %; Eosinophils # 0.1 K/mcL (0.0-0.6); Eosinophils % 0.4 %; Hemoglobin 11.6 g/dL (12.9-16.9); Immature Granulocytes % 0.5 % (0-4); Lymphocytes # 1.4 K/mcL (0.6-4.6); Lymphocytes % 10.3 %; Mean Corpuscular HGB Conc 34.1 g/dL (31.6-35.5); Mean Corpuscular Hemoglobin 26.6 pg (28.0-33.3); Monocytes # 1.1 K/mcL (0.0-1.3); Monocytes % 8.1 %; Neutrophils # 10.9 K/mcL (1.6-8.9); Platelet Count 335 K/mcL (140-400); Red Blood Count 4.36 M/mcL (4.19-5.50); Red Cell Distribution Width 12.2 % (11.5-14.5); Segmented Neutrophils % 80.4 %
[2018-05-15 02:23] LABS: Calcium 7.7 mg/dL (8.6-10.3); Potassium 3.8 mEq/L (3.5-5.1)
[2018-05-15 02:41] LABS: INR 1.3; Prothrombin Time 13.9 Seconds (9.4-12.1)
[2018-05-15] MEDS: *HR* HYDROcodone/Acet 5/325 mg TABLET PO PRN ×2 (03:07→10:26)
[2018-05-15 03:47] LABS: HIV-1&2 Antibody & p24 Ag Nonreactive (Nonreactive); Hepatitis B Surface Antigen Nonreactive (Nonreactive)
[2018-05-15] MEDS: *HR* Enoxaparin 40 MG/0.4 ML SYRINGE SQ SCH (05:07)
[2018-05-15] MEDS: 0.9 % Sodium Chloride 1,000 ML IVC SCH (05:10)
[2018-05-15] MEDS: Cholecalciferol (D-3) 1,000 UNIT TABLET PO SCH (10:25)
[2018-05-15] MEDS: Aspirin Enteric Coated 81 MG Tablet PO SCH (10:26)
[2018-05-15] MEDS: hydrALAZINE 25 MG TABLET PO SCH ×4 (10:26→20:28)
[2018-05-15] MEDS: Gabapentin 300 MG CAPSULE PO SCH ×3 (10:26→20:27)
[2018-05-15] MEDS: Insulin DETEMIR 100 UNIT/ML X5UNITS SQ SCH ×2 (10:27→20:32)
--- NOTE | 2018-05-15 12:20 | Internal Med Progress Note ---
Date of Encounter: 05/15/18 Time of Encounter: 12:17 - Assessment and plan (1) Bacteremia due to Streptococcus Current Visit: Yes Status: Acute Assessment and plan: Bacteremia due to Streptococcus 2/2 blood cultures positive on May 13 Obtain additional set of blood cultures today-continue to closely follow result Likely source IVDU No obvious stigmata of endocarditis Continue penicillin G and clindamycin for a BX Monitor labs daily, assess renal function as these medications are nephrotoxic; 05/15/18-stable renal function Infectious disease seeing in consultation-appreciate recommendations, recommendations for duration of treatment 14 days Currently afebrile, last fever 05/14/18 with MAXIMUM TEMPERATURE 100.3; tachycardia has resolved Clinically, the patient appears stable, no worsening of condition, continue to closely monitor (2) Sepsis Current Visit: Yes Status: Acute Assessment and plan: Sepsis without septic shock, positive for 3 SIRS criteria. Blood cultures positive for group A strep See plan above Qualifiers: Sepsis type: Streptococcus group A Qualified Code(s): A40.0 - Sepsis due to streptococcus, group A (3) Cellulitis Current Visit: Yes Status: Acute Assessment and plan: Mild erythema at bilateral antecubital fossa, erythema more pronounced on left forearm CT imaging of left forearm reveals cellulitis, Negative for necrotizing infectious process Left forearm is indurated, swollen and tender. Blood cultures positive, patient bacteremic group A strep. Continue clindamycin and penicillin G, monitor closely Qualifiers: Site of cellulitis: extremity Site of cellulitis of extremity: upper extremity Laterality: left Qualified Code(s): L03.114 - Cellulitis of left upper limb (4) Septic joint of right knee joint Current Visit: Yes Status: Suspected Assessment and plan: Imaging reveals soft tissue swelling and joint effusion with no acute osseous abnormality S/P drainage in ED. Synovial fluid culture and labs pending. Pain control with tylenol and norco PRN. Avoid NSAIDs due to CKD. Right knee assess today, no additional swelling noted, full range of motion, reporting pain with ROM Qualifiers: Septic arthritis organism: due to unspecified organism Qualified Code(s): M00.9 - Pyogenic arthritis, unspecified (5) Type 1 diabetes mellitus on insulin therapy Current Visit: Yes Status: Chronic Assessment and plan: History of DM 2, glucose stable. Continue current diabetic regimen (6) Hypertension Current Visit: Yes Status: Chronic Assessment and plan: H/o HTN, SBP 170s-180s today Noncompliant with medications Continue home anti-HTN medications Add oral beta laure, continue with when necessary hydralazine IV push Monitor closely, add adjunct therapy as needed Qualifiers: Hypertension type: essential hypertension Qualified Code(s): I10 - Essential (primary) hypertension (7) Cocaine abuse Current Visit: Yes Status: Chronic Assessment and plan: H/o cocaine abuse Counselled extensively on cessation of IV drug abuse and cocaine abuse No signs or symptoms of withdrawal Be cautious with opioids and other controlled substances Continue current pain medication regimen due to history of drug abuse (8) Polyarthralgia Current Visit: Yes Status: Acute Assessment and plan: See above (9) SIRS (systemic inflammatory response syndrome) Current Visit: Yes Status: Acute Assessment and plan: Multiple possible sources of infection, blood cultures positive for group A strep Infectious disease seeing in consultation See above (10) CKD (chronic kidney disease) Current Visit: Yes Status: Chronic Assessment and plan: Follows with Dr. Larose nephrology, noncompliant, reports that he does not regularly follow with nephrology. Unclear baseline renal function, May have slight NARINDER on CKD based on chart review. Continue IVF at 100 ml/hr. Recheck BMP in AM. Consult to nephrology-spoke with -will see in consultation. Appreciate recommendations Qualifiers: Chronic kidney disease stage: unspecified stage Qualified Code(s): N18.9 - Chronic kidney disease, unspecified (11) Right lower lobe pneumonia Current Visit: Yes Status: Suspected Assessment and plan: RLL pneumonia. CXR indicates possible atelectasis versus pneumonia Worsening of pneumonia identified on CT abdomen/pelvis However, from respiratory perspective the patient appears stable resting comfortably on room air this morning satting 93%, continued to report cough. Lungs CTA AP and L Has been afebrile since 11 PM yesterday Strep pneumo and Legionella antigen negative Continue, respiratory support with oxygen, incentive spirometer and duonebs PRN SOB. Qualifiers: Pneumonia type: due to unspecified organism Qualified Code(s): J18.1 - Lobar pneumonia, unspecified organism (12) Heroin use Current Visit: Yes Status: Chronic Assessment and plan: Patient is an IV drug user, positive for cocaine and marijuana as well Last IVDU was approximately 72 hours ago Known history of hepatitis C greater than 20 years ID following Hepatitis B and HIV nonreactive (13) DVT prophylaxis Current Visit: Yes Status: Acute Assessment and plan: Continue lovenox 40 mg SQ and SCDs, early ambulation - Time Spent With Patient Total time spent is greater than 50% in coordination of care (as documented) at patient's floor/unit and/or counseling patient: Greater than 35 minutes - Subjective Interval history: Patient seen and examined at bedside today. No acute changes overnight. Reports left forearm pain, no drainage. Also reporting abdominal discomfort - Constitutional Vitals: Temp Pulse Resp BP Pulse Ox 98.0 F 80 20 173/102 93 05/15/18 11:56 05/15/18 11:56 05/15/18 11:56 05/15/18 11:56 05/15/18 11:56 General appearance: Present: cooperative, A&O X 3, pleasant, no acute distress, answers questions appropriately - Head Head exam: Present: atraumatic, normocephalic - Eye Eye exam: Present: PERRL, conjuntiva pink, sclera anicteric Pupils: Present: PERRL - Neck Neck exam general surgery: Present: supple, trachea midline. Absent: lymphadenopathy - Respiratory Respiratory exam: Present: CTAB. Absent: accessory muscle use, rales, rhonchi, wheezes - Cardiovascular Cardiovascular exam: Present: RRR, +S1, +S2. Absent: diastolic murmur, gallop, rubs, systolic murmur - GI/Abdominal GI/Abdominal exam: Present: distended, normal bowel sounds, soft, tenderness, no peritoneal signs. Absent: mass, rebound - Extremities Exam Extremities exam: Present: warm, radial pulses palpable and symmetrical. Absent : calf tenderness, cyanotic, pedal edema - Neurological Exam Neurological exam: Present: CN II-XII intact, oriented X3, no focal deficits. Absent: pronater drift, facial droop, speech deficit - Skin Skin exam: Present: dry, intact Internal Medicine: Result - Labs CBC & Chem 7: 05/15/18 01:43 05/15/18 01:43 Labs: Short CBC 05/15/18 Range/Units 01:43 WBC 13.5 H (4.3-11.1) K/mcL Hgb 11.6 L (12.9-16.9) g/dL Hct 34.0 L (37.5-50.1) % Plt Count 335 (140-400) K/mcL Neutrophils # 10.9 H (1.6-8.9) K/mcL BMP 05/15/18 01:43 Sodium 130 L Potassium 3.8 Chloride 101 Carbon Dioxide 19 L BUN 23 H Creatinine 2.31 H Glucose 238 H Calcium 7.7 L Cardiac Enzymes 05/14/18 05/14/18 05/15/18 Range/Units 13:25 19:30 01:43 Troponin I 0.03 0.03 0.03 (< 0.04) ng/mL Liver Function 05/14/18 05/14/18 Range/Units 13:25 16:35 Total Bilirubin Cancelled 0.4 Direct Bilirubin Cancelled 0.3 H AST Cancelled 16 ALT Cancelled 12 Alkaline Phosphatase Cancelled 82 Albumin Cancelled 2.2 L - ABG Interpretation ABG results: PT/INR, D-dimer PT 13.9 Seconds (9.4-12.1) H 05/15/18 01:43 - Impressions Impressions Abdomen CT 05/14/18 15:19 IMPRESSION: Cholelithiasis. Gallbladder wall appears mildly diffusely thickened. Bibasilar confluent airspace disease incompletely visualized. Multifocal pneumonia is suspected. Disease has increased from the chest x-ray 1 day ago. No evidence of ascites. D/ / Eliazar Castellano MD / Eliazar Castellano MD Interpreting Provider: Eilazar Castellano MD Forearm CT 05/14/18 15:19 IMPRESSION: 1. Distal arm through hand subcutaneous edema which may represent cellulitis. There is no evidence of a soft tissue abscess. No soft tissue gas to suggest necrotizing infectious process. 2. No evidence of deep fascitis or myositis. 3. No evidence of osteomyelitis or septic arthropathy. D/ / 05/14/2018 17:30:35 Modesto Haji MD / willie Interpreting Provider: Modesto Haji MD Consult Discharge Plan - Plan [facility]errals: [facility] [Primary Care Provider] -
--- NOTE | 2018-05-15 14:07 | Nephrology Consult Note ---
Date of Encounter: 05/15/18 Time of Encounter: 14:00 Assessment and Plan (1) NARINDER (acute kidney injury) Current Visit: Yes Status: Acute Elevated SCr from baseline in the setting of sepsis, vanco/zosyn exposure and IVDA with proteinuria and minimal hematuria Will quantify degree of proteinuria Will check complements Will check urine studies: eosinophils, sodium and creatinine Continue to avoid nephrotoxins if possible Continue IVF for now Will consider holding losartan if renal fxn worsens (2) CKD (chronic kidney disease) stage 3, GFR 30-59 ml/min Current Visit: Yes Status: Acute Baseline GFR in the 40s typically (3) IV drug user Current Visit: Yes Status: Acute Per primary team (4) Bacteremia Current Visit: Yes Status: Suspected Per ID (5) Septic joint of right knee joint Current Visit: Yes Status: Suspected Per ID Qualifiers: Qualified Code(s): M00.9 - Pyogenic arthritis, unspecified History of Present Illness - Reason for Consult Consult date: 05/15/18 Acute Kidney Injury, Chronic Kidney Disease Requesting physician: Oscar Richardson - History of Present Illness 52 y o male with PMH of DM, HTN, hep C with known IVDA with cocaine and heroine and CKD stage [address] Larose presenting for athralgias and was diagnosed with cellulitis along with septic R knee with strep A bacteremia. Renal consulted for elevated SCr from 2.31, GFR 36 to 2.45, GFR 34. He was initiated given vanco and zosyn now discontinued with PCN and clinda started per ID. Past Med Surg Social Fam HX - Past Medical History Medical history: diabetes, GERD, hyperlipidemia, hypertension, renal disease, other Psychiatric history: no psych history - Past Surgical History Surgical History: no surgical history, orthopedic, other - Social History Smoking Status: Current every day smoker Smokeless Tobacco Status: No Alcohol use: occasionally Drug use: cocaine, IV Drug Use, other - Family History Mother Living Status: Hx Family Cardiac Disorders: No Hx Family Respiratory Disorders: Yes (lung cancer) Hx Family Cancer: Yes Hx Family GI Disorders: No Hx Family Endocrine Disorder: Yes Hx Family Neuromuscular Disorders: No Hx Family Neurologic Disorders: No Hx Family HEENT Disorders: No Hx Family Autoimmune Disorders: No Father Living Status: Hx Family Cardiac Disorders: No Hx Family Respiratory Disorders: No Hx Family Cancer: No Hx Family GI Disorders: No Hx Family Endocrine Disorder: Yes (DM) Hx Family Neuromuscular Disorders: No Hx Family Neurologic Disorders: No Hx Family HEENT Disorders: No Hx Family Autoimmune Disorders: No Medications and Allergies Insulin ASPART [NovoLOG] 2 - 10 unit SQ ACHS 02/01/16 [History] Insulin Glargine,Hum.rec.anlog [Lantus Solostar] 38 unit SQ BID 02/01/16 [ History] Omeprazole [PriLOSEC] 20 mg PO DAILY 02/01/16 [History] hydrALAZINE [HydrALAZINE] 25 mg PO QID 02/01/16 [History] Ibuprofen [Motrin] 800 mg PO Q8HR PRN #21 tablet 02/02/16 [Rx] Aspirin [Lo-Dose Aspirin EC] 81 mg PO DAILY 05/13/18 [History] Cholecalciferol (D-3) [Vitamin D] 2,000 unit PO DAILY 05/13/18 [History] Fluticasone Propionate Nasal [Flonase] 2 spr NS DAILY PRN 05/13/18 [History] Gabapentin [Neurontin] 900 mg PO TID 05/13/18 [History] Losartan Potassium [Cozaar] 100 mg PO DAILY 05/13/18 [History] Polyethylene Glycol 3350 [MiraLAX] 17 gm PO HS 05/13/18 [History] Sennosides/Docusate Sodium [Senna-Docusate Sodium Tablet] 1 tab PO HS PRN [History] 3 Allergy/AdvReac Type Severity Reaction Status Date / Time No Known Allergies Allergy Verified 05/13/18 08:25 Review of Systems All Systems: reviewed and no additional remarkable complaints except as stated ( 10 systems reviewed and noted in HPI) Exam - Vital Signs Vital signs: Initial Vital Signs Temp Pulse Resp BP Pulse Ox 100.9 F H 90 16 152/87 96 05/13/18 04:52 05/13/18 04:52 05/13/18 04:52 05/13/18 04:52 05/13/18 04:52 Vital Signs - Last 8 Hours Temp Pulse Resp BP Pulse Ox 05/15/18 11:56 98.0 F 80 20 173/102 93 05/15/18 07:18 98.8 F 96 20 185/114 92 Intake and Output 05/14/18 05/15/18 05/15/18 23:59 07:59 15:59 Intake Total 490 / 490 1250 / 1250 Output Total 1250 / 1250 600 / 600 550 / 550 Balance -760 / -760 650 / 650 -550 / -550 Intake: IV Fluids 250 / 250 1250 / 1250 0.9 % Sodium Chloride 1,000 ML 1000 / 1000 @ 100 mls/hr IVC .Q10H [facility] Rx#: [id number] Cleocin Premix 900 MG/50 ML 900 50 / 50 50 / 50 mg In 50 ml @ 50 mls/hr IVPB Q8HR [facility] Rx#:[id number] Pfizerpen 4,000,000 UNIT In 0.9 200 / 200 200 / 200 % Sodium Chloride 100 ML @ 100 mls/hr IVPB Q4HR [facility] Rx#: [id number] Oral 240 / 240 Output: Urine 1250 / 1250 600 / 600 550 / 550 Other: Meal Dinner Percent of Meal Consumed 30% Weight 113.4 kg Blood Glucose* 141 142 Patient Weight 05/15/18 23:59 Weight 113.4 kg - General Appearance General appearance: moderate distress, chronically ill EENT: ATNC, mucous membranes moist Neck: no JVD, supple Additional Comments: good areation ant bilat Cardiology: no edema ( LUE edema noted), normal S1, normal S2 Gastrointestinal: no tenderness, no guarding, obese Integumentary: warm and dry Neurologic: no focal deficit Results - Lab Results 05/16/18 04:05 05/16/18 04:05 Most recent lab results Calcium 7.7 mg/dL (8.6-10.3) L 05/15/18 01:43 Consult Discharge Plan - Plan [facility]: [facility] [Primary Care Provider] -
[2018-05-15] MEDS ORDERED: *HR* LORazepam 2 MG/ML VIAL IVP PRN (14:38)
[2018-05-15 14:44] LABS: Uric Acid 4.6 mg/dL (2.3-7.6)
[2018-05-15] MEDS: *HR* OxyCODONE/APAP 5/325 TABLET PO PRN ×2 (18:06→23:46)
[2018-05-16] MEDS: 0.9 % Sodium Chloride 1,000 ML IVC SCH ×2 (03:53→12:17)
[2018-05-16] MEDS: Penicillin G Potassium 4,000,000 UNIT in 0.9 % Sodium Chloride 100 ML IVPB SCH ×3 (04:17→12:16)
[2018-05-16] MEDS: Insulin LISPRO 300 UNITS/3 ML VIAL SQ SCH ×5 (04:19→20:21)
[2018-05-16 04:41] LABS: Basophils % 0.3 %; Eosinophils # 0.3 K/mcL (0.0-0.6); Eosinophils % 1.9 %; Hematocrit 33.9 % (37.5-50.1); Hemoglobin 11.4 g/dL (12.9-16.9); Immature Granulocytes % 0.4 % (0-4); Lymphocytes # 1.8 K/mcL (0.6-4.6); Lymphocytes % 12.4 %; Mean Corpuscular HGB Conc 33.6 g/dL (31.6-35.5); Mean Corpuscular Hemoglobin 26.1 pg (28.0-33.3); Mean Corpuscular Volume 77.8 fL (83.0-100.0); Mean Platelet Volume 9.8 fL (9.4-12.4); Monocytes # 1.3 K/mcL (0.0-1.3); Monocytes % 8.8 %; Platelet Count 412 K/mcL (140-400); Red Blood Count 4.36 M/mcL (4.19-5.50); Red Cell Distribution Width 12.7 % (11.5-14.5); Segmented Neutrophils % 76.2 %
[2018-05-16 04:43] LABS: Microalbumin,Urine > 1350 mg/L
[2018-05-16 04:57] LABS: Calcium 7.6 mg/dL (8.6-10.3)
[2018-05-16] MEDS: *HR* OxyCODONE/APAP 5/325 TABLET PO PRN ×3 (06:14→18:48)
[2018-05-16] MEDS: *HR* Enoxaparin 40 MG/0.4 ML SYRINGE SQ SCH (06:14)
[2018-05-16] MEDS: hydrALAZINE 25 MG TABLET PO SCH ×4 (08:30→20:20)
[2018-05-16] MEDS: Cholecalciferol (D-3) 1,000 UNIT TABLET PO SCH (08:30)
[2018-05-16] MEDS: Aspirin Enteric Coated 81 MG Tablet PO SCH (08:32)
[2018-05-16] MEDS: Gabapentin 300 MG CAPSULE PO SCH ×3 (08:32→20:20)
[2018-05-16] MEDS: Clindamycin 900 MG/50 ML 900 MG/50 ML IV.SOLN IVPB SCH (08:32)
[2018-05-16] MEDS: Insulin DETEMIR 100 UNIT/ML X5UNITS SQ SCH ×2 (08:32→20:21)
[2018-05-16] MEDS ORDERED: amLODIPine 5 MG TABLET PO SCH (09:00)
--- NOTE | 2018-05-16 13:25 | Internal Med Progress Note ---
Date of Encounter: 05/16/18 Time of Encounter: 13:23 - Assessment and plan (1) Bacteremia due to Streptococcus Current Visit: Yes Status: Acute Assessment and plan: Bacteremia due to group A strep 2/2 blood cultures positive on 05/13/18 Repeat cultures 05/15/18 pending Likely source IVDU, could also be from septic knee No obvious stigmata of endocarditis Sensitivities resulted, changing antibiotics to Rocephin, discontinue penicillin and clindamycin Continue to Monitor labs daily, assess renal function Infectious disease seeing in consultation-appreciate recommendations, recommendations for duration of treatment 14 days Currently afebrile, febrile overnight with tmax 100.3, tachycardia has resolved Clinically, the patient appears stable, no worsening of condition, continue to closely monitor (2) Sepsis Current Visit: Yes Status: Acute Assessment and plan: Sepsis without septic shock, positive for 3 SIRS criteria Blood cultures positive for group A strep See plan above Qualifiers: Sepsis type: Streptococcus group A Qualified Code(s): A40.0 - Sepsis due to streptococcus, group A (3) Cellulitis Current Visit: Yes Status: Acute Assessment and plan: History of IVDU, pain and swelling to the left forearm, doses of cellulitis CT imaging of left forearm reveals cellulitis, Negative for necrotizing infectious process Left forearm is indurated, swollen and tender. No fluctuance noted Blood cultures positive, patient bacteremic with group A strep Sensitive to ceftriaxone, continue Qualifiers: Site of cellulitis: extremity Site of cellulitis of extremity: upper extremity Laterality: left Qualified Code(s): L03.114 - Cellulitis of left upper limb (4) Septic joint of right knee joint Current Visit: Yes Status: Suspected Assessment and plan: Imaging reveals soft tissue swelling and joint effusion with no acute osseous abnormality S/P drainage in ED. Synovial fluid total nucleated cell count 1060 Continue Pain control with tylenol and norco PRN. Avoid NSAIDs due to CKD. Right knee, no additional swelling noted, full range of motion on today's assessment Qualifiers: Septic arthritis organism: due to unspecified organism Qualified Code(s): M00.9 - Pyogenic arthritis, unspecified (5) Type 1 diabetes mellitus on insulin therapy Current Visit: Yes Status: Chronic Assessment and plan: History of DM 2, continue sliding scale coverage (6) Hypertension Current Visit: Yes Status: Chronic Assessment and plan: H/o HTN, SBP remains elevated today 05/16/18 Noncompliant with medications at home Continue home anti-HTN medications Add oral beta laure, continue with when necessary hydralazine IV push Add amlodipine 10 mg daily Monitor closely, add adjunct therapy as needed Qualifiers: Hypertension type: essential hypertension Qualified Code(s): I10 - Essential (primary) hypertension (7) Cocaine abuse Current Visit: Yes Status: Chronic Assessment and plan: H/o cocaine abuse Counselled extensively on cessation of IV drug abuse and cocaine abuse No signs or symptoms of withdrawal Be cautious with opioids and other controlled substances Continue current pain medication regimen due to history of drug abuse (8) Polyarthralgia Current Visit: Yes Status: Acute Assessment and plan: See above (9) SIRS (systemic inflammatory response syndrome) Current Visit: Yes Status: Acute Assessment and plan: Multiple possible sources of infection, blood cultures positive for group A strep Infectious disease seeing in consultation See above (10) CKD (chronic kidney disease) Current Visit: Yes Status: Chronic Assessment and plan: Acute kidney injury on chronic CKD Patient is septic and was getting vancomycin and Zosyn, also history of IVDU Urine microalbumin greater than 1350 Urine total protein [address] Larose nephrology, but is noncompliant Nephrology seeing in consultation, appreciate recommendations and evaluation Renal function remains stable today Continue IVF at 100 ml/hr. Recheck BMP in AM. Qualifiers: Chronic kidney disease stage: unspecified stage Qualified Code(s): N18.9 - Chronic kidney disease, unspecified (11) Right lower lobe pneumonia Current Visit: Yes Status: Suspected Assessment and plan: RLL pneumonia. CXR indicates possible atelectasis versus pneumonia Worsening of pneumonia identified on CT abdomen/pelvis Lungs CTA AP and L No respiratory distress, on room air and 96%, no accessory muscle usage Had a fever overnight, tmax 100.3 Serologies negative Continue, respiratory support with oxygenPRN, incentive spirometer duonebs PRN SOB. Qualifiers: Pneumonia type: due to unspecified organism Qualified Code(s): J18.1 - Lobar pneumonia, unspecified organism (12) Heroin use Current Visit: Yes Status: Chronic Assessment and plan: Known IVDU Also positive for cocaine and marijuana on admission Last IVDU was approximately 96 hours ago Concern for hepatitis B and HIV, hepatitis B and HIV nonreactive Known history of hepatitis C greater than 20 years At discharge would benefit from inpatient rehabilitation (13) DVT prophylaxis Current Visit: Yes Status: Acute Assessment and plan: Continue lovenox 40 mg SQ and SCDs, early ambulation BLE nontender, PT/DP pulses palpable 1+ - Time Spent With Patient Total time spent is greater than 50% in coordination of care (as documented) at patient's floor/unit and/or counseling patient: Greater than 35 minutes - Subjective Interval history: Patient seen and examined at bedside today. No acute changes overnight. Reports that his left forearm pain persists but is improving, no drainage to LT forearm noted. - Constitutional Vitals: Temp Pulse Resp BP Pulse Ox 98.9 F 88 16 178/101 96 05/16/18 11:15 05/16/18 11:15 05/16/18 11:15 05/16/18 11:15 05/16/18 11:15 General appearance: Present: cooperative, A&O X 3, pleasant, no acute distress, answers questions appropriately - Head Head exam: Present: atraumatic, normocephalic - Eye Eye exam: Present: EOMI, PERRL, conjuntiva pink, sclera anicteric Pupils: Present: PERRL - Neck Neck exam general surgery: Present: supple, trachea midline. Absent: lymphadenopathy - Respiratory Respiratory exam: Present: CTAB. Absent: accessory muscle use, rales, rhonchi, wheezes - Cardiovascular Cardiovascular exam: Present: RRR, +S1, +S2. Absent: diastolic murmur, gallop, rubs, systolic murmur - GI/Abdominal GI/Abdominal exam: Present: distended, normal bowel sounds, soft, tenderness ( Diffuse), no peritoneal signs. Absent: guarding, rebound, rigid - Extremities Exam Extremities exam: Present: tenderness (Left forearm), warm, radial pulses palpable and symmetrical. Absent: calf tenderness, cyanotic, normal inspection , pedal edema - Expanded Upper Extremities Exam Forearm wrist exam: Present: erythema (Mildly erythematous; in the setting of cellulitis), swelling (Mild, indurated, no fluctuance noted), tenderness - Neurological Exam Neurological exam: Present: CN II-XII intact, oriented X3, no focal deficits. Absent: pronater drift, facial droop, speech deficit - Skin Skin exam: Present: dry, intact Internal Medicine: Result - Labs CBC & Chem 7: 05/16/18 04:05 05/16/18 04:05 Labs: Short CBC 06/17/18 Range/Units 04:05 WBC 14.4 H (4.3-11.1) K/mcL Hgb 11.4 L (12.9-16.9) g/dL Hct 33.9 L (37.5-50.1) % Plt Count 412 H (140-400) K/mcL Neutrophils # 11.0 H (1.6-8.9) K/mcL BMP 05/16/18 04:05 Sodium 130 L Potassium 4.0 Chloride 102 Carbon Dioxide 21 L BUN 22 H Creatinine 2.12 H Glucose 205 H Calcium 7.6 L - ABG Interpretation ABG results: PT/INR, D-dimer PT 13.9 Seconds (9.4-12.1) H 05/15/18 01:43 Consult Discharge Plan - Plan [facility]errals: [facility] [Primary Care Provider] -
[2018-05-16] MEDS ORDERED: amLODIPine 5 MG TABLET PO ONE (13:28)
[2018-05-16 13:44] LABS: Adenovirus Not Detected (Not Detect); Bordetella Pertussis Not Detected (Not Detect); Chlamydophila pneumoniae Not Detected (Not Detect); Coronavirus 229E Not Detected (Not Detect); Coronavirus HKU1 Not Detected (Not Detect); Coronavirus NL63 Not Detected (Not Detect); Coronavirus OC43 Not Detected (Not Detect); Human Metapneumovirus Not Detected (Not Detect); Human Rhinovirus/Enterovirus Not Detected (Not Detect); Influenza A Subtype 2009 H1 Not Detected (Not Detect); Influenza A Untypeable Not Detected (Not Detect); Influenza B Not Detected (Not Detect); Mycoplasma pneumoniae Not Detected (Not Detect); Parainfluenza Virus 1 Not Detected (Not Detect); Parainfluenza Virus 2 Not Detected (Not Detect); Parainfluenza Virus 3 Not Detected (Not Detect); Parainfluenza Virus 4 Not Detected (Not Detect); Respiratory Syncytial Virus Not Detected (Not Detect)
--- NOTE | 2018-05-16 13:53 | Nephrology Progress Note ---
Date of Encounter: 05/16/18 Time of Encounter: 13:50 - Assessment and Plan (1) NARINDER (acute kidney injury) Current Visit: Yes Status: Acute SCr improving at 2.12, GFR 40, continue ivf UOP good at 1650cc in the past 24hrs Urine eosinophils negative, urine proteinuria confirmed CPK and uric acid levels unremarkable ASO, complement c3, c4 pending cntinue to avoid nephrotoxins if possible (2) CKD (chronic kidney disease) stage 3, GFR 30-59 ml/min Current Visit: Yes Status: Acute (3) IV drug user Current Visit: Yes Status: Acute (4) Bacteremia Current Visit: Yes Status: Suspected (5) Septic joint of right knee joint Current Visit: Yes Status: Suspected Qualifiers: Qualified Code(s): M00.9 - Pyogenic arthritis, unspecified Subjective Interval history: Pt seen and examined Objective - Vital Signs Vital signs: Vital Signs Temp Pulse Resp BP Pulse Ox 05/16/18 11:15 98.9 F 88 16 178/101 96 05/16/18 08:28 98.7 F 89 16 175/100 94 05/16/18 04:02 98.5 F 95 18 168/96 93 05/15/18 23:20 100.3 F H 88 17 180/101 94 05/15/18 20:07 99.5 F 98 18 175/103 92 05/15/18 16:46 98.4 F 91 20 184/110 95 Intake and Output 05/15/18 05/16/18 05/16/18 23:59 07:59 15:59 Intake Total 750 / 750 250 / 250 580 / 580 Output Total 500 / 500 1025 / 1025 Balance 250 / 250 250 / 250 -445 / -445 Intake: IV Fluids 250 / 250 250 / 250 100 / 100 Cleocin Premix 900 MG/50 ML 900 50 / 50 50 / 50 mg In 50 ml @ 50 mls/hr IVPB Q8HR [facility] Rx#:[id number] Pfizerpen 4,000,000 UNIT In 0.9 200 / 200 200 / 200 100 / 100 % Sodium Chloride 100 ML @ 100 mls/hr IVPB Q4HR [facility] Rx#: [id number] Oral 500 / 500 480 / 480 Output: Urine 500 / 500 1025 / 1025 Other: Meal water pictcher Breakfast Percent of Meal Consumed 100% Weight 114 kg Blood Glucose* 148 174 187 Patient Weight 05/16/18 23:59 Weight 114 kg - Lab 05/16/18 04:05 05/16/18 04:05 Most recent lab results Calcium 7.6 mg/dL (8.6-10.3) L 05/16/18 04:05 Urine Total Protein 507 mg/dL (1-14) H 05/15/18 14:14 Consult Discharge Plan - Plan [facility]errals: [facility] [Primary Care Provider] -
[2018-05-16] MEDS ORDERED: cefTRIAXone 1,000 MG in Water for inj. (sterile) 20 ML 10 ML IVP SCH (14:00)
--- NOTE | 2018-05-16 20:55 | Electrocardiograph Report ---
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
[2018-05-16] MEDS ORDERED: Melatonin 3 MG TABLET PO ONE (23:21)
[2018-05-17] MEDS: Insulin LISPRO 300 UNITS/3 ML VIAL SQ SCH ×3 (00:42→09:04)
[2018-05-17] MEDS: *HR* OxyCODONE/APAP 5/325 TABLET PO PRN ×2 (00:42→06:36)
[2018-05-17 01:39] LABS: Creatinine,Urine 52 mg/dL; Protein/Creatinine Ratio,Urine 9.75 mg/mg (0.00-0.20); Sodium, Urine 60.3 mEq/L
[2018-05-17 03:25] LABS: Hepatitis B Surface Antibody 233.93 mIU/mL
[2018-05-17 04:47] LABS: Basophils # 0.1 K/mcL (0.0-0.2); Basophils % 0.5 %; Eosinophils # 0.3 K/mcL (0.0-0.6); Eosinophils % 1.9 %; Hematocrit 34.8 % (37.5-50.1); Hemoglobin 11.8 g/dL (12.9-16.9); Lymphocytes # 2.5 K/mcL (0.6-4.6); Lymphocytes % 16.5 %; Mean Corpuscular HGB Conc 33.9 g/dL (31.6-35.5); Mean Corpuscular Hemoglobin 26.5 pg (28.0-33.3); Mean Corpuscular Volume 78.2 fL (83.0-100.0); Mean Platelet Volume 9.3 fL (9.4-12.4); Monocytes # 1.4 K/mcL (0.0-1.3); Monocytes % 9.5 %; Neutrophils # 10.5 K/mcL (1.6-8.9); Platelet Count 449 K/mcL (140-400); Red Blood Count 4.45 M/mcL (4.19-5.50); Red Cell Distribution Width 12.9 % (11.5-14.5); Segmented Neutrophils % 70.6 %
[2018-05-17 05:09] LABS: Potassium 5.1 mEq/L (3.5-5.1)
[2018-05-17] MEDS: *HR* Enoxaparin 40 MG/0.4 ML SYRINGE SQ SCH (06:36)
[2018-05-17 07:19] VITALS: BP 180/105
[2018-05-17] MEDS: hydrALAZINE 25 MG TABLET PO SCH (08:52)
[2018-05-17] MEDS: Aspirin Enteric Coated 81 MG Tablet PO SCH (08:53)
[2018-05-17] MEDS: Cholecalciferol (D-3) 1,000 UNIT TABLET PO SCH (08:53)
[2018-05-17] MEDS: Gabapentin 300 MG CAPSULE PO SCH (08:54)
[2018-05-17] MEDS ORDERED: amLODIPine 5 MG TABLET PO SCH (09:00)
[2018-05-17] MEDS: Insulin DETEMIR 100 UNIT/ML X5UNITS SQ SCH (09:05)
--- NOTE | 2018-05-17 09:10 | Electrocardiograph Report ---
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
--- NOTE | 2018-05-17 10:38 | Event Note ---
Date of Encounter: 05/17/18 Time of Encounter: 10:34 Mr Sabillon is a 52 year-old male who presented from the OR with left arm cellulitis. He was found to have group B a strep p. bacteremia. Has been receiving IV antibiotics. Additionally, patient has acute on chronic kidney injury. I was notified this morning the patient is wishing to leave. I informed the patient that he would require additional days of IV antibiotics as well as closer monitoring of his renal function. However, the patient declined stating that he was leaving today either way. I explained to the patient that he was not ready for discharge and that I would not be offering discharged today. It is at this time the patient decided to leave AGAINST MEDICAL ADVICE. He was informed that leaving his current condition could worsen his bacteremia , cause further morbidity or . Patient verbalizes understanding and still wishes to leave AGAINST MEDICAL ADVICE. Prior to leaving he was given a prescription for amoxicillin to be taken 3 times a day for 2 weeks. Patient was educated that he would need to finish the entire prescription for amoxicillin. Additionally, he was informed that should he develop fevers, chills, worsening swelling/pain, and fatigue he should return to the ED for further care. Again, the patient verbalizes understanding and denies any further questions and is leaving AGAINST MEDICAL ADVICE.
[2018-05-18 15:21] LABS: Complement Component 3 155 mg/dL (88-201); Complement Component 4 31 mg/dL (10-40)
== END 2018-05-17 11:08 | disposition left against medical advice (07) | DRG 853 ==
LOC: 3BNU 04:49 → EMEROO 04:49 → 3BNU 06:45
PROVIDERS: ADMIT Family Medicine; ATTEND Family Medicine